=== PATIENT | female | born 1995 | race Hispanic/Latino ===

== ENCOUNTER 2021-06-14 15:25 | Inpatient (IN) | payer OTHER ==
[2021-06-14 16:49] VITALS: BMI 30.2
[2021-06-14] MEDS ORDERED: HYDROcodone/Acetaminophen 5/325 mg Tablet PO PRN ×2 (19:53)
[2021-06-14] MEDS ORDERED: hydrALAZINE 20 MG/ML VIAL SLOW IVP PRN (19:53)
[2021-06-14] MEDS ORDERED: Misoprostol 100 MCG TAB VAG SCH (19:53)
[2021-06-14] MEDS ORDERED: Misoprostol 200 MCG TAB PR PRN (19:53)
[2021-06-14] MEDS ORDERED: Diphenoxylate HCl/Atropine Tablet PO PRN (19:53)
[2021-06-14] MEDS ORDERED: Promethazine HCl 25 MG/ML VIAL IM PRN (19:53)
[2021-06-14] MEDS ORDERED: Methylergonovine 0.2 MG/ML VIAL IM PRN (19:53)
[2021-06-14] MEDS ORDERED: Carboprost 250 MCG/ML AMP IM PRN (19:53)
[2021-06-14] MEDS ORDERED: Ibuprofen 800 MG TAB PO PRN (19:53)
[2021-06-14] MEDS ORDERED: Lidocaine 1% (PF) 30 ML VIAL SC PRN (19:53)
[2021-06-14] MEDS ORDERED: Zolpidem Tartrate 5 MG TAB PO PRN (19:53)
[2021-06-14] MEDS ORDERED: Ondansetron PF 4 MG/2 ML Vial IVP PRN (19:53)
[2021-06-14 20:05] LABS: Hemoglobin 12.1 g/dL (12.0-15.5); Mean Corpuscular HGB CONC 33.2 g/dL (32.0-36.0); Mean Corpuscular Hemoglobin 29.4 pg (27.0-33.0); Mean Corpuscular Volume 88.3 fl (81.6-98.3); Mean Platelet Volume 10.6 fl (7.4-10.4); Platelet Count 237 10x3/uL (150-450); RBC Distribution Width 14.1 % (11.5-14.5); Red Blood Cell (RBC) Count 4.12 10x6/uL (3.90-5.03); White Blood Cell (WBC) Count 12.1 10x3/uL (3.5-10.5)
[2021-06-14] MEDS ORDERED: NS w/ Oxytocin 30 units 500 ML IV SCH (20:30)
[2021-06-14 20:37] LABS: Hep B Surf Ag Non-Reactive S/CO (NonReactive)
[2021-06-14 20:38] LABS: Syphilis Antibody Nonreactive (Nonreactive); Syphilis Antibody Index 0.22 S/CO (<1.00 Non-Reactive)
[2021-06-14 20:41] LABS: HBSAg Index 0.23 S/CO (0-0.99)
[2021-06-14 21:32] LABS: SARS-CoV-2 NAA Rapid Test Not Detected (NotDetected)
[2021-06-15] MEDS: Misoprostol 100 MCG TAB VAG SCH ×2 (02:05→06:55)
[2021-06-15] MEDS ORDERED: NS w/ Oxytocin 30 units 500 ML IV SCH (07:30)
[2021-06-15] MEDS: Lactated Ringer's 1,000 ML IV SCH ×2 (08:33→10:26)
[2021-06-15] MEDS: Butorphanol Tartrate 1 MG/ML VIAL SLOW IVP PRN ×2 (14:38→16:43)
[2021-06-15] MEDS ORDERED: Fentanyl 2 mcg/Bup 0.1% Cadd 100 ML ONE (18:19)
[2021-06-15] MEDS ORDERED: ePHEDrine Sulfate 50 MG/10 ML VIAL SLOW IVP PRN (20:43)
[2021-06-15] MEDS ORDERED: Naloxone HCl 0.4 mg/ml Vial IVP PRN ×2 (20:43)
[2021-06-15] MEDS ORDERED: Acetaminophen 325 MG TAB PO PRN (20:43)
[2021-06-15] MEDS ORDERED: Lactated Ringer's 500 ML IV PRN (20:43)
[2021-06-15] MEDS ORDERED: Ondansetron PF 4 MG/2 ML Vial IVP PRN (20:43)
[2021-06-15] MEDS ORDERED: diphenhydrAMINE 50 MG/ML VIAL IVP PRN (20:43)
[2021-06-15] MEDS ORDERED: Hydrocerin (Eucerin) Cream 120 gm Jar TOP PRN (20:43)
[2021-06-15] MEDS ORDERED: Promethazine HCl 25 MG/ML VIAL IM PRN (20:43)
[2021-06-15] MEDS ORDERED: Fentanyl 2 mcg/Bupivacaine 0.1% Cassette 100 ML EPIDURAL SCH (20:45)
[2021-06-15] MEDS ORDERED: Communication Order-Pharmacy FS SCH (20:45)
[2021-06-15] MEDS ORDERED: Misoprostol 200 MCG TAB ONE (22:37)
[2021-06-15] MEDS ORDERED: Methylergonovine 0.2 MG/ML VIAL ONE (22:39)
[2021-06-16] MEDS ORDERED: Milk Of Magnesia 30 ML UDCUP PO PRN (01:02)
[2021-06-16] MEDS ORDERED: NS w/ Oxytocin 30 units 500 ML IV PRN (01:02)
[2021-06-16] MEDS ORDERED: Methylergonovine 0.2 MG/ML VIAL IM PRN (01:02)
[2021-06-16] MEDS ORDERED: Boostrix 0.5 ML (Tdap) VIAL IM ONE (01:02)
[2021-06-16] MEDS ORDERED: Ondansetron PF 4 MG/2 ML Vial IVP PRN (01:02)
[2021-06-16] MEDS ORDERED: Benzocaine-Menthol 82.5 ML CAN TOP PRN (01:02)
[2021-06-16] MEDS ORDERED: Misoprostol 200 MCG TAB VAG PRN (01:02)
[2021-06-16] MEDS ORDERED: hydrALAZINE 20 MG/ML VIAL SLOW IVP PRN (01:02)
[2021-06-16] MEDS ORDERED: Bisacodyl 10 MG SUPP PR PRN (01:02)
[2021-06-16] MEDS ORDERED: HYDROcodone/Acetaminophen 5/325 mg Tablet PO PRN (01:02)
[2021-06-16] MEDS ORDERED: Ibuprofen 800 MG TAB PO SCH (01:15)
[2021-06-16] MEDS: Misoprostol 100 MCG TAB VAG SCH ×2 (07:55→07:56)
[2021-06-16] MEDS: Lactated Ringer's 1,000 ML IV SCH (07:55)
[2021-06-16] MEDS: Ibuprofen 800 MG TAB PO SCH ×2 (08:36→16:03)
[2021-06-16] MEDS: Docusate Calcium (SURFAK) 240 MG CAP PO SCH ×2 (08:37→20:30)
[2021-06-16 08:46] LABS: HIV (1/2) Antibody/Antigen Non-Reactive (NonReactive); HIV 1/2 INDEX 0.12 S/CO (<1.00)
[2021-06-16] MEDS: Ferrous Sulfate 325 MG TAB PO SCH ×2 (09:35→17:11)
[2021-06-16] MEDS: HYDROcodone/Acetaminophen 5/325 mg Tablet PO PRN ×2 (13:05→20:30)
[2021-06-17] MEDS: Ibuprofen 800 MG TAB PO SCH ×3 (01:06→16:15)
[2021-06-17] MEDS: Docusate Calcium (SURFAK) 240 MG CAP PO SCH (08:15)
[2021-06-17] MEDS: Ferrous Sulfate 325 MG TAB PO SCH ×2 (08:18→16:06)
[2021-06-17 08:53] VITALS: BP 115/67; TEMP 97.6
== END 2021-06-17 16:33 | disposition home or self-care (01) | DRG 807 ==
LOC: CSHLD/OP 15:25 → CSHLD 19:45 → CSHPP 06-16 02:45
PROVIDERS: ADMIT Obstetrics & Gynecology; ATTEND Obstetrics & Gynecology
PROC: 3E0P7VZ Introduction of Hormone into Female Reproductive, Via Natural or Artificial Opening (ICD-10-PCS; 2021-06-14)
PROC: 3E033VJ Introduction of Other Hormone into Peripheral Vein, Percutaneous Approach (ICD-10-PCS; 2021-06-14)
PROC: 10E0XZZ Delivery of Products of Conception, External Approach (ICD-10-PCS; principal; 2021-06-15)
PROC: 0KQM0ZZ Repair Perineum Muscle, Open Approach (ICD-10-PCS; 2021-06-15)
PROC: 10907ZC Drainage of Amniotic Fluid, Therapeutic from Products of Conception, Via Natural or Artificial Opening (ICD-10-PCS; 2021-06-15)
DX: O76 Abnormality in fetal heart rate and rhythm complicating labor and delivery (principal); Z37.0 Single live birth; Z3A.37 37 weeks gestation of pregnancy; Z20.822 Contact with and (suspected) exposure to COVID-19; O70.1 Second degree perineal laceration during delivery; O77.0 Labor and delivery complicated by meconium in amniotic fluid; N85.8 Other specified noninflammatory disorders of uterus; O34.83 Maternal care for other abnormalities of pelvic organs, third trimester
CPT/HCPCS: 36415; 72190; 76815; 76819; 85027; 86780; 86850; 86870; 86900; 86901; 87340; 87389; J0595; J2210; J2590; J7120; U0002